=== PATIENT | female | born 1995 | race Caucasian/White ===

== ENCOUNTER 2017-03-28 10:54 | Outpatient (CLI) | payer OTHER ==
[~2017-03-28] VITALS: Ht 175.3 cm; Wt 96.4 kg
[2017-03-28 11:19] VITALS: BP 109/58
[2017-03-28] MEDS ORDERED: EXPECTA PRENAT1 EACH PO (12:27)
[2017-03-28] MEDS ORDERED: VENTOLIN HFA18 GM IH (12:27)
[2017-03-28 13:08] VITALS: BP 118/60
[2017-03-28 14:24] VITALS: BP 114/61
[2017-03-28] MEDS ORDERED: ZANTAC75 M1 PO (21:39)
[2017-03-29] MEDS ORDERED: DOCUSATE SODIU100 MG PO (10:38)
[2017-03-29] MEDS ORDERED: IBUPROFEN800 MG PO (10:38)
[2017-03-29] MEDS ORDERED: ENDOCET 5-3251 EACH PO (10:38)
== END 2017-03-28 15:20 | disposition home or self-care (01) ==
LOC: LDRP-OP 10:54 → 2WEST 10:56 → LDRP-OP 04-30 12:04
DX: O47.1 False labor at or after 37 completed weeks of gestation (principal); Z3A.39 39 weeks gestation of pregnancy
CPT/HCPCS: 59025; C1755; G0378

== ENCOUNTER 2017-03-28 21:14 | Inpatient (IN) | payer OTHER ==
[~2017-03-28] VITALS: Ht 175.3 cm; Wt 96.0 kg
[2017-03-28] VITALS (9 sets, daily range): BP systolic 105–133; BP diastolic 53–67
[~2017-03-28 21:14] MED LIST: EXPECTA PRENAT1 EACH PO; VENTOLIN HFA18 GM IH
[2017-03-28] MEDS ORDERED: ZANTAC75 M1 PO (21:39)
[2017-03-28 22:22] LABS: BASOPHIL (%) 0.1 % (0-1); EOSINOPHIL (%) 0.1 % (0-5); HEMATOCRIT 34.7 % (36.0-46.0); HEMOGLOBIN 11.5 G/DL (11.9-15.5); IMMATURE GRANULOCYTE (%) 0.9 % (0.0-0.7); LYMPHOCYTE (%) 7.7 % (15-42); LYMPHOCYTE COUNT 1.2 K/uL (1.0-2.8); MCH 28.3 PG (29.0-34.0); MCHC 33.1 G/DL (30.0-36.0); MCV 85.3 FL (83-99); MONOCYTE (%) 4.2 % (3-12); MONOCYTE COUNT 0.6 K/uL (0-0.8); NEUTROPHIL COUNT 13.4 K/uL (1.8-6.4); PLATELET COUNT 217 K/uL (156-360); RBC DIS.WIDTH-CV 14.2 % (11.8-14.6); RBC DIS.WIDTH-SD 43.9 % (39-53); RED BLOOD COUNT 4.07 M/uL (3.80-5.20); WHITE BLOOD COUNT 15.4 K/uL (4.1-10.2)
[2017-03-29] VITALS (19 sets, daily range): BP systolic 102–122; BP diastolic 51–64
[2017-03-29] MEDS ORDERED: IBUPROFEN800 MG PO (10:38)
[2017-03-29] MEDS ORDERED: DOCUSATE SODIU100 MG PO (10:38)
[2017-03-29] MEDS ORDERED: ENDOCET 5-3251 EACH PO (10:38)
[2017-03-30 04:30] VITALS: BP 104/52
[2017-03-30 06:25] LABS: BASOPHIL (%) 0.2 % (0-1); EOSINOPHIL (%) 0.5 % (0-5); EOSINOPHIL COUNT 0.1 K/uL (0-0.3); HEMATOCRIT 28.7 % (36.0-46.0); IMMATURE GRANULOCYTE (%) 0.9 % (0.0-0.7); LYMPHOCYTE (%) 13.7 % (15-42); LYMPHOCYTE COUNT 2.3 K/uL (1.0-2.8); MCH 28.7 PG (29.0-34.0); MCHC 33.1 G/DL (30.0-36.0); MCV 86.7 FL (83-99); MONOCYTE COUNT 1.3 K/uL (0-0.8); NEUTROPHIL (%) 76.7 % (45-76); NEUTROPHIL COUNT 12.8 K/uL (1.8-6.4); PLATELET COUNT 153 K/uL (156-360); RBC DIS.WIDTH-CV 14.4 % (11.8-14.6); RBC DIS.WIDTH-SD 45.2 % (39-53); RED BLOOD COUNT 3.31 M/uL (3.80-5.20); WHITE BLOOD COUNT 16.7 K/uL (4.1-10.2)
[2017-03-30 06:39] LABS: HEMOGLOBIN 9.5 G/DL (11.9-15.5)
[2017-03-30 06:50] VITALS: BP 100/47
[2017-03-30 14:10] VITALS: BP 101/48
[2017-03-31 07:13] VITALS: BP 120/66
[2017-03-31 15:01] VITALS: BP 106/64
[2017-03-31 23:05] VITALS: BP 115/67
== END 2017-04-01 14:10 | disposition home or self-care (01) | DRG 766 ==
LOC: LDRP-OP 21:14 → 2WEST 21:15 → LDRP-OP 04-30 16:35
PROVIDERS: Advanced Practice Midwife; Obstetrics & Gynecology
DX: O32.1XX0 Maternal care for breech presentation, not applicable or unspecified (principal); O76 Abnormality in fetal heart rate and rhythm complicating labor and delivery; O77.0 Labor and delivery complicated by meconium in amniotic fluid; O99.824 Streptococcus B carrier state complicating childbirth; O99.52 Diseases of the respiratory system complicating childbirth; J45.909 Unspecified asthma, uncomplicated; O99.89 Other specified diseases and conditions complicating pregnancy, childbirth and the puerperium; M41.9 Scoliosis, unspecified; O99.72 Diseases of the skin and subcutaneous tissue complicating childbirth; L40.9 Psoriasis, unspecified; O99.284 Endocrine, nutritional and metabolic diseases complicating childbirth; E88.01 Alpha-1-antitrypsin deficiency; Z3A.39 39 weeks gestation of pregnancy; Z37.0 Single live birth; Z88.1 Allergy status to other antibiotic agents
CPT/HCPCS: 59025; 85025; 88307; C1755; G0378; J0456; J0690; J1100; J1170; J2274; J2405; J2590; J3010; J3370; J7120